=== PATIENT | female | born 1965 | race Caucasian/White ===

== ENCOUNTER 2017-01-12 22:24 | Emergency (ER) | payer OTHER ==
[~2017-01-12] VITALS: Ht 165.1 cm; Wt 77.3 kg
[2017-01-12 22:31] VITALS: Ht 165.1 cm; Wt 77.3 kg
[2017-01-12] MEDS ORDERED: morphine 4 MG/ML VIAL IV STA (22:52)
[2017-01-12] MEDS ORDERED: ONDANSETRON 4 MG INJ IV STA (22:52)
[2017-01-12] MEDS ORDERED: SOD CHLORIDE 0.9% 1,000 ML IV STA (22:52)
[2017-01-12] MEDS ORDERED: DIPHTH/TET/ACEL PERTUSS (ADULT) 0.5 ML VIAL IM* ONE (23:00)
[2017-01-12 23:58] LABS: ADD SCAN DIFF NO
[2017-01-13] LABS: BASOPHIL # 0.1 10^3/ul (0.0-0.1); BASOPHILS % 0.8 % (0.0-2.0); EOSINOPHILS # 0.1 10^3/ul (0.0-0.5); EOSINOPHILS % 1.1 % (0.0-7.0); HEMATOCRIT 44.2 % (37.0-47.0); HEMOGLOBIN 15.2 g/dl (12.0-16.0); LYMPHOCYTES # 2.1 10^3/ul (0.8-2.9); MEAN CORPUSCULAR HEMOGLOBIN 35.4 pg (29.0-33.0); MEAN CORPUSCULAR HGB CONC 34.4 g/dl (32.0-37.0); MEAN PLATELET VOLUME 9.4 fl (7.4-10.4); MONOCYTE # 0.5 10^3/ul (0.3-0.9); MONOCYTES % 4.5 % (0.0-11.0); NEUTROPHIL # 7.6 10^3/ul (1.6-7.5); NEUTROPHILS % 73.3 % (39.0-77.0); PLATELET COUNT 285 10^3/UL (140-415); RED BLOOD COUNT 4.29 10^6/ul (4.20-5.40); RED CELL DISTRIBUTION WIDTH 12.3 % (11.5-14.5); WHITE BLOOD COUNT 10.4 10^3/ul (4.8-10.8)
--- NOTE | 2017-01-13 00:03 | EN ---
Date/Time of Note Date/Time of Note DATE: 01/13/17 TIME: 00:02 ER Progress Note Ultrasound-guided peripheral IV insertion note: Indication being that nursing staff was unable to obtain vascular access. Her ultrasound guidance a easily inserted an 18-gauge extended Angiocath into the right basilic deep vein. Good blood flow and labs obtained from the same line. Patient to the procedure well or no complications. Images saved in chart. AMADEO MARIEE DO Jan 13, 2017 00:03
[2017-01-13 00:17] LABS: ALBUMIN 4.4 g/dl (3.3-4.9); ALBUMIN/GLOBULIN RATIO 1.33; CALCIUM 8.8 mg/dl (8.4-10.2); CREATININE 0.79 mg/dl (0.44-1.00); TOTAL PROTEIN 7.7 g/dl (6.1-8.1)
[2017-01-13] MEDS ORDERED: IBUPROFEN 200 MG TAB ONE (00:20)
--- NOTE | 2017-01-13 00:23 | RADRPT ---
PROCEDURE: XR Shoulder. CLINICAL INDICATION: Right shoulder pain. TECHNIQUE: 2 views of the right shoulder. COMPARISON: None available FINDINGS: There is a fracture of the greater tuberosity region of the humeral head. No dislocation is identifi ed. The joint spaces are preserved. The coracoclavicular interval is normal. The visualized right lung is clear. IMPRESSION: 1. Fracture of the greater tuberosity region of the humeral head. RPTAT: HTAR .Brandon Reis MD, MD Date Time Electronically viewed and signed by .Brandon Reis MD, MD on 01/13/2017 00:22 .R/
[2017-01-13] MEDS ORDERED: IBUPROFEN 200 MG TAB PO ONE ×2 (00:30→01:30)
[2017-01-13 00:41] LABS: INR 0.92; PROTIME 12.4 Sec (12.2-14.2)
[2017-01-13 00:42] LABS: PARTIAL THROMBOPLASTIN TIME 21.2 Sec (25.0-35.0)
[2017-01-13] MEDS ORDERED: IBUP-1542 PO (01:08)
--- NOTE | 2017-01-13 01:11 | ERD ---
ER Documentation Chief Complaint Date/Time DATE: 01/13/17 TIME: 01:10 Chief Complaint right shoulder pain r/t mechanical fall w/ slight deformity HPI This is a 51-year-old female right shoulder pain status post mechanical fall. Slight deformity is noted. Brought in by rescue. She is a small abrasion over the bridge of her nose as well. No fevers no chills. No loss consciousness. No focal neurological complaints. ROS All systems reviewed and are negative except as per history of present illness. Medications Home Meds Active Scripts Ibuprofen* (Motrin*) 600 Mg Tab, 600 MG PO Q6, #30 TAB Prov:ROYAL ALTMAN 01/13/17 Allergies Allergies: Coded Allergies: Penicillins (Verified Allergy, Unknown, 01/12/17) PMhx/Soc History of Surgery: Yes (APPENDECTOMY) Anesthesia Reaction: No Hx Neurological Disorder: Yes (BLEPHARA SPASM) Hx Respiratory Disorders: No Hx Cardiac Disorders: Yes (HTN) Hx Psychiatric Problems: No Hx Miscellaneous Medical Probl: No Hx Alcohol Use: No Hx Substance Use: No Hx Tobacco Use: Yes Smoking Status: Current every day smoker Physical Exam Vitals Vital Signs Date Time Temp Pulse Resp B/P Pulse Ox O2 Delivery O2 Flow Rate FiO2 01/12/17 22:31 97.2 72 18 104/56 99 Physical Exam Const: [] Head: Atraumatic Eyes: Normal Conjunctiva ENT: 2 cm laceration over bridge of nose. No active bleeding noted. Neck: Full range of motion..~ No meningismus. Resp: Clear to auscultation bilaterally Cardio: Regular rate and rhythm, no murmurs Abd: Soft, non tender, non distended. Normal bowel sounds Skin: No petechiae or rashes Back: No midline or flank tenderness Ext: No cyanosis, or edema Neur: Awake and alert Psych: Normal Mood and Affect Result Diagram: 01/12/17 2348 01/12/17 2348 Results 24 hrs Laboratory Tests Test 01/12/17 23:48 White Blood Count 10.410^3/ul Red Blood Count 4.2910^6/ul Hemoglobin 15.2g/dl Hematocrit 44.2% Mean Corpuscular Volume 103.0fl Mean Corpuscular Hemoglobin 35.4pg Mean Corpuscular Hemoglobin Concent 34.4g/dl Red Cell Distribution Width 12.3% Platelet Count 33832^3/UL Mean Platelet Volume 9.4fl Neutrophils % 73.3% Lymphocytes % 20.0% Monocytes % 4.5% Eosinophils % 1.1% Basophils % 0.8% Nucleated Red Blood Cells % 0.0/100WBC Neutrophils # 7.610^3/ul Lymphocytes # 2.110^3/ul Monocytes # 0.510^3/ul Eosinophils # 0.110^3/ul Basophils # 0.110^3/ul Nucleated Red Blood Cells # 0.010^3/ul Prothrombin Time 12.4Sec Prothrombin Time Ratio 1.0 INR International Normalized Ratio 0.92 Activated Partial Thromboplast Time 21.2Sec Sodium Level 146mmol/L Potassium Level 4.0mmol/L Chloride Level 110mmol/L Carbon Dioxide Level 23mmol/L Anion Gap 17 Blood Urea Nitrogen 10mg/dl Creatinine 0.79mg/dl Glucose Level 119mg/dl Calcium Level 8.8mg/dl Total Bilirubin 0.0mg/dl Direct Bilirubin 0.00mg/dl Indirect Bilirubin 0.0mg/dl Aspartate Amino Transf (AST/SGOT) 105IU/L Alanine Aminotransferase (ALT/SGPT) 62IU/L Alkaline Phosphatase 77IU/L Total Protein 7.7g/dl Albumin 4.4g/dl Globulin 3.30g/dl Albumin/Globulin Ratio 1.33 Lipase 144U/L Current Medications Medications (Trade) Dose Ordered Sig/Kamaljit Route PRN Reason Start Time Stop Time Status Last Admin Dose Admin Sodium Chloride (NS) 1,000 ml @ 1,000 mls/hr Q1H STAT IV 01/12/17 22:52 01/12/17 23:51 DC 01/12/17 23:52 Morphine Sulfate (morphine) 4 mg ONCE STAT IV 01/12/17 22:52 01/12/17 22:54 DC 01/12/17 23:53 Ondansetron HCl (Zofran Inj) 4 mg ONCE STAT IV 01/12/17 22:52 01/12/17 22:54 DC 01/12/17 23:54 Diphtheria/ Tetanus/Acell Pertussis (Adacel) 0.5 ml ONCE ONCE IM* 01/12/17 23:00 01/12/17 23:01 DC 01/12/17 23:54 Ibuprofen (Motrin) 400 mg ONCE ONCE PO 01/13/17 00:30 4/18/17 00:31 DC 01/13/17 00:31 Ibuprofen (Motrin) 200 mg STK-MED ONCE .ROUTE 01/13/17 00:20 01/13/17 00:21 DC Procedures/MDM X-ray Shoulder 3V Interpreted by me: Bones: Proximal humerus fracture Joints: No dislocation Foreign body: None Medical decision-makin female with a small laceration of shoulder fracture. She will be placed in a sling. Lacerations had Dermabond recommended , however patient refused. At this point is clinically stable for outpatient management. Given orthopedic follow-up. Departure Diagnosis: Primary Impression: Shoulder injury Encounter type: initial encounter Laterality: right Qualified Code: S49.91XA - Shoulder injury, right, initial encounter Condition: Stable Patient Instructions: Fracture, Shoulder Referrals: DARBY DONOVAN MD, DANIEL S. Jan 13, 2017 01:11
[2017-01-13 01:30] VITALS: BP 135/79; PULSE 87; RESP 22; TEMP 98.9
== END 2017-01-13 01:40 | disposition home or self-care (01) ==
LOC: E/R 22:24
DX: S49.91XA Unspecified injury of right shoulder and upper arm, initial encounter (principal); I10 Essential (primary) hypertension; F17.210 Nicotine dependence, cigarettes, uncomplicated; S01.21XA Laceration without foreign body of nose, initial encounter; W18.39XA Other fall on same level, initial encounter; Y92.9 Unspecified place or not applicable
CPT/HCPCS: 36415; 73030; 80053; 83690; 85025; 85610; 85730; 90471; 90715; 96374; 96375; 99284; J2270; J2405; J7030